=== PATIENT | female | born 1995 | race Caucasian/White ===

== ENCOUNTER 2017-07-11 15:23 | Emergency (ER) | payer BC ==
[~2017-07-11] VITALS: Ht 157.5 cm; Wt 52.7 kg
[~2017-07-11 15:23] MED LIST: CAPITAL WITH C473 ML PO; EFFEXOR75 MG PO; JUNEL FE 1/21 TABLET PO; OMEPRAZOLE40 M1
[2017-07-11 15:54] LABS: HEMATOCRIT 42.8 % (36.0-46.0); MCH 29.8 PG (29.0-34.0); MCHC 34.1 G/DL (30.0-36.0); MCV 87.3 FL (83-99); MEAN PLAT.VOLUME 9.2 uM^3 (9.5-12.4); PLATELET COUNT 332 K/uL (156-360); RBC DIS.WIDTH-SD 38.6 % (39-53); WHITE BLOOD COUNT 13.7 K/uL (4.1-10.2)
[2017-07-11 15:58] LABS: ADD MIUA? YES; BILIRUBIN NEGATIVE; BLOOD LARGE; COLOR AMBER ((YELLOW)); GLUCOSE (STRIP) NEGATIVE; KETONES NEGATIVE; LEUKOCYTES NEGATIVE; NITRITE NEGATIVE; PROTEIN (STRIP) 100; SPECIFIC GRAVITY 1.015 (1.000-1.030); UROBILINOGEN 0.2 MG/DL (0.2-1.0)
[2017-07-11 16:04] LABS: CHLORIDE 105 mEq/L (99-109); POTASSIUM 4.4 mEq/L (3.7-5.4); SODIUM 141 mEq/L (136-147)
[2017-07-11 16:05] LABS: GLUCOSE 90 mg/dL (70-99)
[2017-07-11 16:07] LABS: ANION GAP 11 MEQ/L (2-14)
[2017-07-11 16:09] LABS: GFR ESTIMATE (CALCULATED) > 59 mL/min/
[2017-07-11 16:10] LABS: UREA NITROGEN (BUN) 7 mg/dL (9-23)
[2017-07-11 16:26] LABS: BACTERIA RARE /HPF; CASTS NONE SEEN /LPF; CRYSTALS NONE SEEN; EPITHELIAL CELLS NONE SEEN /HPF; MUCUS NONE SEEN /LPF; RED BLOOD CELLS TNTC /HPF (0-5); UCUL ADDED? YES; WHITE BLOOD CELLS RARE /HPF (0-5)
[2017-07-11 17:25] LABS: QUANTITATIVE HCG < 4.0 MIU/ML
[2017-07-11] MEDS ORDERED: PERCOCET 5/31 TABLET PO (18:07)
[2017-07-11] MEDS ORDERED: ZOFRAN ODT4 MG PO (18:07)
[2017-07-11 18:12] VITALS: BP 104/57
== END 2017-07-11 18:18 | disposition home or self-care (01) ==
LOC: EME 15:23
DX: N20.0 Calculus of kidney (principal); K21.9 Gastro-esophageal reflux disease without esophagitis; Z79.3 Long term (current) use of hormonal contraceptives
CPT/HCPCS: 74176; 80048; 81003; 84702; 85027; 87086; 99281; 99284